=== PATIENT | male | born 1975 | race Caucasian/White ===

== ENCOUNTER 2017-12-19 14:09 | Emergency (ER) | payer MEDICARE, MEDICAID ==
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
[2017-12-19] MEDS ORDERED: PANT40TA65 PO (14:24)
[2017-12-19] MEDS ORDERED: VENL100T22 PO (14:24)
[2017-12-19] MEDS ORDERED: METO50TA19 PO (14:24)
[2017-12-19] MEDS ORDERED: ACYC-50 PO (14:24)
[2017-12-19] MEDS ORDERED: LOPE-84 PO (14:24)
[2017-12-19] MEDS ORDERED: EMS NS 0.9%(*) 1000 ML BAG 1,000 ML IV ONE (14:30)
[2017-12-19 14:51] LABS: PLATELET COUNT, AUTOMATED 329 K/uL (150-450)
--- NOTE | 2017-12-19 15:02 | RADIOLOGY IMAGING REPORT ---
FACILITY: [facility] PATIENT NAME: Ric Dave : 1975 MR: [id number] V: [id number] EXAM DATE: ORDERING PHYSICIAN: KIMBERLYN MCGARRY TECHNOLOGIST: Location: [facility] Patient: Ric Dave : 1975 Visit/Account:[id number] Date of Sevice: 12/19/2017 EXAMINATION: Portable AP Chest HISTORY: Chest pain. Dizziness. COMPARISON: None. FINDINGS: The lungs are clear. No focal consolidation or pleural effusion. No pneumothorax. Normal cardiomedi astinal silhouette, with normal heart size and pulmonary vascularity. Visualized osseous structures are unremarkable. IMPRESSION: Negative chest. Report Dictated By: Yong Reyna MD at 12/19/2017 2:57 PM Report E-Signed By: Yong Reyna MD at 12/19/2017 2:57 PM WSN:[id number]
[2017-12-19 17:00] VITALS: BP 123/86
--- NOTE | 2017-12-19 17:01 | EKG ---
FACILITY: [facility] [place] PATIENT NAME: RICKY SHIN : [id number] MR: [id number] V: [id number] EXAM DATE: ORDERING PHYSICIAN: KIMBERLYN MCGARRY TECHNOLOGIST: LAURENT Mitchell Reason : REPEAT Blood Pressure : / mmHG Vent. Rate : 080 BPM Atrial Rate : 080 BPM P-R Int : 160 ms QRS Dur : 100 ms QT Int : 406 ms P-R-T Axes : 021 003 012 degrees QTc Int : 468 ms Normal sinus rhythm Cannot rule out Anterior infarct (cited on or before 19-DEC-2017)vs lead placement No ST-T abnormalities When compared with ECG of 19-DEC-2017 14:11, No significant change was found Confirmed by RUCHI TIM ([id number]) on 12/19/2017 5:41:13 PM Referred By: MALGORZATA Confirmed By:RUCHI TIM
--- NOTE | 2017-12-19 17:01 | EKG ---
FACILITY: [facility] PATIENT NAME: RICKY SHIN : [id number] MR: [id number] V: [id number] EXAM DATE: ORDERING PHYSICIAN: KIMBERLYN MCGARRY TECHNOLOGIST: LAURENT Mitchell Reason : CHEST PAIN Blood Pressure : / mmHG Vent. Rate : 089 BPM Atrial Rate : 089 BPM P-R Int : 146 ms QRS Dur : 094 ms QT Int : 376 ms P-R-T Axes : 032 010 023 degrees QTc Int : 457 ms Normal sinus rhythm with sinus arrhythmia Possible Anterior infarct , age undetermined vs lead placement No ST-T abnormalities Confirmed by RUCHI TIM ([id number]) on 12/19/2017 5:38:48 PM Referred By: MALGORZATA Confirmed By:RUCHI TIM
== END 2017-12-19 17:37 | disposition home or self-care (01) ==
LOC: ER 14:13
DX: R07.9 Chest pain, unspecified (principal); I49.9 Cardiac arrhythmia, unspecified
CPT/HCPCS: 36415; 71045; 82040; 82247; 82310; 82374; 82435; 82565; 82947; 83880; 84075; 84132; 84155; 84295; 84450; 84460; 84484; 84520; 85025; 85379; 93005; 96360; 99284

== ENCOUNTER → 2017-12-19 | Outpatient (CLI) | payer MEDICARE, MEDICAID ==
[~2017-12-19] MED LIST: ACYC-50 PO; LOPE-84 PO; METO50TA19 PO; PANT40TA65 PO; VENL100T22 PO
== END ==
LOC: AMB 13:53
PROVIDERS: ATTEND Nurse Practitioner
DX: R07.9 Chest pain, unspecified (principal); R06.02 Shortness of breath; R42 Dizziness and giddiness; R11.0 Nausea; Z21 Asymptomatic human immunodeficiency virus [HIV] infection status
CPT/HCPCS: A0425; A0427